=== PATIENT | female | born 1970 | race Caucasian/White ===

== ENCOUNTER 2017-03-28 22:07 | Emergency (ER) | payer BC, OTHER ==
[2017-03-28] MEDS ORDERED: Acetaminophen/Codeine 30-300mg Tablet ONE (23:52)
[2017-03-28] MEDS ORDERED: Morphine 4 MG/ML Carpuject ONE (23:53)
[2017-03-28] MEDS ORDERED: Ibuprofen 800 MG TAB ONE (23:53)
--- NOTE | 2017-03-29 07:44 | RAD ---
3 VIEWS RIGHT FOOT: Date: 03/29/17 HISTORY: Right foot injury. FINDINGS: Lisfranc joint is normally aligned. There is no evidence of a fracture, dislocation, or other osseous abnormality. IMPRESSION: No acute osseous abnormality of the right foot. POS: [facility]
--- NOTE | 2017-03-29 07:49 | RAD ---
2 VIEWS STERNUM: Date: 03/29/17 HISTORY: Chest injury/sternal injury. FINDINGS: No obvious fracture is seen involving the sternum. No other osseous abnormality is seen. IMPRESSION: No acute osseous abnormality seen involving the sternum. POS: [facility]
--- NOTE | 2017-03-29 07:50 | RAD ---
4 VIEWS RIGHT KNEE: Date: 03/29/17 HISTORY: Right knee injury. FINDINGS: There is no evidence of a fracture, dislocation, or other osseous abnormality involving the right kne e. IMPRESSION: No acute osseous abnormality. POS: [facility]
== END 2017-03-29 02:45 | disposition home or self-care (01) ==
LOC: SCSER 22:07
DX: S93.601A Unspecified sprain of right foot, initial encounter (principal); S20.219A Contusion of unspecified front wall of thorax, initial encounter; S80.01XA Contusion of right knee, initial encounter; V49.9XXA Car occupant (driver) (passenger) injured in unspecified traffic accident, initial encounter
CPT/HCPCS: 71120; 93005; 96372; J2270

== ENCOUNTER 2017-04-11 16:41 | Outpatient (CLI) | payer BC | END 2017-04-11 16:42 | disposition home or self-care (01) | LOC: LABBT 16:41 | PROVIDERS: ATTEND Neurological Surgery | DX: Z01.818 Encounter for other preprocedural examination (principal); M54.16 Radiculopathy, lumbar region ==

== ENCOUNTER 2017-04-18 06:05 | Day surgery (SDC) | payer BC ==
[2017-04-11 17:06] VITALS: BMI 29.5
--- NOTE | 2017-04-18 06:04 | HP ---
HISTORY OF PRESENT ILLNESS: Ms. Hopkins is known to us for previous lumbar diskectomy almost a year ago and did very well with that surgery. She returns now roughly 4 months' worth of lower back pain, nonradiating, what seems mostly to be an L5 radicular pattern in the bilateral lower extremities. S he has had injections in the past and physical therapy, which helped her but only short lived. She h as an MRI from [facility] that reveals mostly left-sided disk herniation at L5 that impacts the descending S1 nerve root on that side. Does not make much contact with the right side; however, it d oes not fit exactly to her symptoms on presentation; however, she still prefer to move forward with s urgery citing that this is the exact scenario that occurred before her previous surgery and that it s till went very well. PAST MEDICAL HISTORY: Hypothyroidism, unspecified liver problems. PAST SURGICAL HISTORY: Lumbar diskectomy. ALLERGIES: CODEINE. CURRENT MEDICATIONS: Estradiol, levothyroxine, levocetirizine, vitamin D, and Myrbetriq. PHYSICAL EXAMINATION: Patient is alert and oriented x3. Gait is normal, no ataxia. Lower extremity motor exam is normal. Positive right straight leg raise. ASSESSMENT: Lumbar radiculopathy and lumbar disk herniation. PLAN: Dr. Leon met with the patient, reviewed the imaging and ultimately advocated for an L5 diskec cele. He explained to the patient the risks, benefits, and alternatives of the procedure. The patie nt expressed understanding and would like to move forward with surgery as discussed. I do believe th e patient is mentally competent and capable of making medical decisions for herself and we will move forward with surgery as planned. This is Jerry Mcleod PA-C, dictating for Dr. Leon.
[2017-04-18] MEDS ORDERED: CEFAZOLIN/Water 2 GM/20 ML SYRINGE ONE ×2 (06:27→10:27)
[2017-04-18] MEDS ORDERED: Midazolam HCl 2 mg/2 ml Vial ONE (06:48)
[2017-04-18] MEDS ORDERED: Fentanyl 100 MCG/2 ML VIAL ONE (06:48)
[2017-04-18] MEDS ORDERED: Thrombin 5000 UNITS/5 ML VIAL ONE (07:59)
[2017-04-18] MEDS ORDERED: Bupivacaine/Epinephrine 0.25% 30 ML VIAL ONE (07:59)
[2017-04-18] MEDS ORDERED: diphenhydrAMINE 50 MG/ML VIAL ONE (09:03)
[2017-04-18] MEDS ORDERED: Dexamethasone 20 MG/5 ML VIAL ONE (09:03)
[2017-04-18] MEDS ORDERED: Ondansetron HCl/PF 4 MG/2 ML Vial ONE (09:03)
[2017-04-18] MEDS ORDERED: Ketorolac Tromethamine 30 MG/ML VIAL ONE (09:03)
[2017-04-18] MEDS ORDERED: Metoclopramide HCl 10 MG/2 ML VIAL ONE (09:03)
[2017-04-18] MEDS ORDERED: Lidocaine 1% PF 5 ML VIAL ONE (09:03)
[2017-04-18] MEDS ORDERED: Propofol 200 MG/20 ML VIAL ONE (09:03)
[2017-04-18] MEDS ORDERED: Glycopyrrolate 0.2 MG/ML 5 ML SYRINGE ONE (09:03)
--- NOTE | 2017-04-18 09:30 | OP ---
DATE OF PROCEDURE: 04/18/2017 SURGEON: Kalia Leon M.D. [place]ARK DRIVER: Jerry Mcleod PA-C. INDICATION: Pain. DIAGNOSIS: Lumbar radiculopathy. PROCEDURE PERFORMED: L5 discectomy. ANESTHESIA: General. TECHNIQUE: The patient was brought into the operating room and placed under general anesthesia. She was flipped from a supine to a prone position on the operating room table. A linear incision was pl anned just inferior to an old linear incision from a prior operation. This area was prepped and drap ed. Following appropriate operative pause, the incision was created. The soft tissues were swept aw ay from midline. A self-retaining retractor was placed in the wound for optimal exposure. An X-ray image performing the lateral plane was obtained to confirm the appropriate level. High-speed cutting drill bit as well as 2, 3 and 4-mm Kerrisons were then used to perform a laminectomy along the infer ior aspect of L5 and the superior aspect of S1. The descending S1 nerve root was identified and mobi lized medially with a nerve root retractor. An 11 blade knife was then used to perform annulotomy an d protuberant disc. Disk punches and curettes were then used to remove the protuberant disc material effectively reducing the lateral recess, crowding and stenosis. The wound was irrigated. Hemostasi s was maintained throughout. The wound was then closed in anatomic layers and a pressure dressing wa s applied. There were no known procedural complications.
--- NOTE | 2017-04-18 09:51 | RAD ---
SINGLE LATERAL RADIOGRAPH OF THE LUMBAR SPINE: DATE: 04/18/17. HISTORY: Intraoperative examination, laminectomy. FINDINGS: A portable cross-table lateral intraoperative radiograph of the lumbar spine is provided. Detailed a ssessment is limited secondary to technique and body habitus. Postoperative hardware is seen posteri or to the lumbosacral junction. Osseous detail is suboptimal. IMPRESSION: Limited intraoperative exam. POS: [facility]
== END 2017-04-18 10:57 | disposition home or self-care (01) ==
LOC: SDC 06:05
PROVIDERS: ATTEND Neurological Surgery
PROC: 01NB0ZZ Release Lumbar Nerve, Open Approach (ICD-10-PCS; principal; 2017-04-18)
PROC: 0ST20ZZ Resection of Lumbar Vertebral Disc, Open Approach (ICD-10-PCS; principal; 2017-04-18)
DX: M54.16 Radiculopathy, lumbar region (principal); E03.9 Hypothyroidism, unspecified; K76.9 Liver disease, unspecified; Z79.899 Other long term (current) drug therapy; Z88.5 Allergy status to narcotic agent; Z90.49 Acquired absence of other specified parts of digestive tract; Z98.890 Other specified postprocedural states
CPT/HCPCS: 72020; J0131; J1100; J1200; J1885; J2001; J2250; J2405; J2704; J2765; J3010

== ENCOUNTER 2018-03-20 12:05 | Outpatient (CLI) | payer BC ==
--- NOTE | 2018-03-20 14:48 | RAD ---
CHEST TWO VIEWS: 03/20/2018 HISTORY: Preoperative patient. COMPARISON: None. FINDINGS: The lungs are clear. The heart and mediastinal contour is unremarkable. IMPRESSION: No acute findings. POS: [facility]
== END 2018-03-20 12:06 | disposition home or self-care (01) ==
LOC: SCSRAD 12:05
PROVIDERS: ATTEND Orthopaedic Surgery Orthopaedic Surgery of the Spine
DX: Z01.818 Encounter for other preprocedural examination (principal)
CPT/HCPCS: 71046

== ENCOUNTER 2018-03-27 12:27 | Outpatient (CLI) | payer BC ==
--- NOTE | 2018-03-27 19:29 | EKG ---
Test Reason : SX WORKUP Blood Pressure : / mmHG Vent. Rate : 078 BPM Atrial Rate : 078 BPM P-R Int : 124 ms QRS Dur : 076 ms QT Int : 378 ms P-R-T Axes : 046 022 021 degrees QTc Int : 430 ms Normal sinus rhythm Normal ECG When compared with ECG of 28-MAR-2017 22:30, No significant change was found Confirmed by STACY BLACK, SSammie ([id number]) on 03/27/2018 7:29:24 PM Referred By: BRANDI Confirmed By:DR. Freddie KUMAR MD
== END 2018-03-27 12:28 | disposition home or self-care (01) ==
LOC: EKG 12:27
PROVIDERS: ATTEND Orthopaedic Surgery Orthopaedic Surgery of the Spine
DX: Z01.810 Encounter for preprocedural cardiovascular examination (principal)
CPT/HCPCS: 93005; 93010

== ENCOUNTER 2018-04-13 15:18 | Outpatient (CLI) | payer BC | END 2018-04-13 15:19 | disposition home or self-care (01) | LOC: BICMAMMO 15:18 | PROVIDERS: ATTEND Obstetrics & Gynecology | DX: Z12.31 Encounter for screening mammogram for malignant neoplasm of breast (principal) | CPT/HCPCS: 77063; 77067 ==

== ENCOUNTER 2020-04-11 06:54 | Outpatient (CLI) | payer BC ==
[2020-04-11 16:48] LABS: Hemoglobin 14.8 g/dL (12.0-16.0); Mean Corpuscular Hemoglobin 30.8 PG (27.0-33.0); Mean Corpuscular Volume 90.6 fl (80.0-100.0); Mean Platelet Volume 9.3 fl (7.4-10.4); Platelet Count 278 10x3/uL (130-400); RBC Distribution Width 12.3 % (11.5-14.5); White Blood Cell (WBC) Count 7.9 10x3/uL (4.5-11.0)
[2020-04-11 16:58] LABS: ALT (SGPT) 24 U/L (8-55); AST (SGOT) 23 U/L (5-34); Albumin 4.8 g/dL (3.5-5.0); Alkaline Phosphatase 116 U/L (40-110); Bilirubin, Direct 0.4 mg/dL (0.1-0.3); Bilirubin, Total 1.3 mg/dL (0.2-1.2); Protein, Total 7.3 g/dL (6.0-8.3)
[2020-04-11 17:33] LABS: INR-International Normal Ratio 0.9; PTT 27.1 sec (22.0-33.0); Prothrombin Time 9.7 sec (9.5-12.1)
[2020-04-12 03:30] LABS: SARS-CoV-2 MS2 Positive; SARS-CoV-2 N Gene Negative; SARS-CoV-2 S Gene Negative; SARS-CoV-2 by NAA Not Detected (NotDetected); SARS-CoV-2 orf1ab Negative
== END 2020-04-11 06:55 | disposition home or self-care (01) ==
LOC: LABBT 06:54
PROVIDERS: ATTEND Neurological Surgery
DX: Z01.812 Encounter for preprocedural laboratory examination (principal); M48.061 Spinal stenosis, lumbar region without neurogenic claudication; Z20.828 Contact with and (suspected) exposure to other viral communicable diseases
CPT/HCPCS: 80076; 85027; 85610; 85730; 87635; U0003

== ENCOUNTER 2020-04-16 05:46 | Day surgery (SDC) | payer BC ==
[2020-04-15 13:50] VITALS: BMI 30.1
--- NOTE | 2020-04-15 21:58 | HP ---
HISTORY OF PRESENT ILLNESS: Ms. Hopkins is a 49-year-old woman known to us from prior lumbar decompression, who returns now with significant bilateral lower extremity L5 pains down to the feet. She has been treating these current symptoms with Dr. Cobos with epidural steroid injections, which only provided modest relief. She has also attended physical therapy and medications, again with minimal to no relief. She has new MRI from an outside facility that reveals moderate lateral recess stenosis at L4-L5 that would be really the only pathology on her scan that would correlate. She hopes to discuss possible surgical intervention. PAST MEDICAL HISTORY: Significant for seasonal allergies. PAST SURGICAL HISTORY: section x2, hysterectomy, tonsillectomy, appendectomy, diskectomy x2 and then a TLIF procedure at an outside facility. CURRENT MEDICATIONS: 1. Ursodiol. 2. Levothyroxine. 3. Cetirizine. 4. Vitamin D. ALLERGIES: NO KNOWN DRUG ALLERGIES. PHYSICAL EXAMINATION: Exam is deferred for telehealth visit. ASSESSMENT: Lumbar radiculopathy. PLAN: Dr. Leon met with the patient, reviewed imaging, and advocated for L4-L5 decompression. He explained to the patient the risks, benefits, and alternatives to the procedure. The patient expressed understanding and elected to move forward with surgery as discussed. I do believe the patient is mentally competent and capable of making medical decisions for herself. We will move forward with surgery as planned. Job ID: [id number]
[2020-04-16] MEDS ORDERED: Bupivacaine PF 0.5% 30 ML VIAL ONE (06:12)
[2020-04-16] MEDS ORDERED: EPINEPHrine 1 MG/ML AMP ONE (06:12)
[2020-04-16] MEDS ORDERED: Thrombin 5000 UNITS/5 ML VIAL ONE (06:12)
[2020-04-16] MEDS ORDERED: Fentanyl 100 MCG/2 ML VIAL ONE ×3 (06:33→08:32)
[2020-04-16] MEDS ORDERED: Midazolam HCl 2 mg/2 ml Vial ONE (06:48)
[2020-04-16] MEDS ORDERED: HYDROcodone/Acetaminophen 5/325 mg Tablet ONE (09:37)
--- NOTE | 2020-04-16 10:10 | OP ---
DATE OF PROCEDURE: 04/16/2020 FIRE LOOKOUT: Jerry Mcleod PA-C INDICATION: Pain. DIAGNOSIS: Lumbar radiculopathy. PROCEDURES PERFORMED: Bilateral L4-L5 decompression. ANESTHESIA: General. DESCRIPTION OF PROCEDURE: The patient was brought into the operating room and placed under general anesthesia. She was flipped from the supine to prone position on the operating room table. A linear incision was planned at the L4-L5 segment, which encompassed an area of a prior surgical procedure. After prepping and draping and after an appropriate preoperative pause, the incision was created. The soft tissues were swept away from midline. Self-retaining retractor was placed and a C-arm image was obtained to confirm the appropriate level. After confirming the appropriate level, bilateral hemilaminectomy was performed along the inferior aspect of L4 and the superior aspect of L5. The laminectomies were extended laterally to encompass the medial facet joints in order to adequately decompress the lateral recesses at L4-L5, and therefore decompress the descending bilateral L5 nerve roots. After completing the decompression, the wound was irrigated. Hemostasis was maintained throughout. The wound was then closed in anatomic layers, and a pressure dressing was applied. There were no known procedural complications. Job ID: [id number]
[2020-04-16] MEDS ORDERED: Dexamethasone 20 MG/5 ML VIAL ONE (10:20)
[2020-04-16] MEDS ORDERED: Glycopyrrolate 0.2 MG/ML 5 ML SYRINGE ONE (10:20)
[2020-04-16] MEDS ORDERED: Rocuronium Bromide 10 MG/ML (10ML VIAL) ONE (10:20)
[2020-04-16] MEDS ORDERED: PROPOFOL 200 MG/20 ML VIAL ONE (10:20)
[2020-04-16] MEDS ORDERED: Lidocaine 1% PF 5 ML VIAL ONE (10:20)
[2020-04-16] MEDS ORDERED: Ketorolac Tromethamine 30 MG/ML VIAL ONE (10:20)
[2020-04-16] MEDS ORDERED: Ondansetron PF 4 MG/2 ML Vial ONE (10:20)
== END 2020-04-16 10:40 | disposition home or self-care (01) ==
LOC: SDC 05:46
PROVIDERS: ATTEND Neurological Surgery
PROC: 00NY0ZZ Release Lumbar Spinal Cord, Open Approach (ICD-10-PCS; principal; 2020-04-16)
DX: M48.061 Spinal stenosis, lumbar region without neurogenic claudication (principal); M54.16 Radiculopathy, lumbar region; J30.2 Other seasonal allergic rhinitis; Z79.899 Other long term (current) drug therapy; Z88.5 Allergy status to narcotic agent
CPT/HCPCS: 76000; J0171; J0690; J1100; J1885; J2250; J2405; J2704; J3010; S0020

== ENCOUNTER 2021-06-01 09:57 | Outpatient (CLI) | payer BC | END 2021-06-01 09:58 | disposition home or self-care (01) | LOC: BICMAMMO 09:57 | PROVIDERS: ATTEND Physician Assistant | DX: N63.10 Unspecified lump in the right breast, unspecified quadrant (principal) | CPT/HCPCS: 77066; G0279 ==